=== PATIENT | male | born 2000 | race Caucasian/White ===

== ENCOUNTER 2021-04-30 10:35 | Emergency (ER) | payer BC ==
[2021-04-30] MEDS ORDERED: Sodium Chloride 0.9% 1,000 ML IV ONE (11:15)
--- NOTE | 2021-04-30 11:20 | EDM.PDOC ---
ED HPI GENERAL MEDICAL PROBLEM - General Source of Information: Reports: Patient History Limitations: Reports: No Limitations - History of Present Illness Onset: Today, Sudden Duration: Minutes: Location: Reports: Generalized Severity: Severe Worsens with: Reports: None <Thierno Gutierrez - Last Filed: 04/30/21 12:01> <Antonio Dotson - Last Filed: 04/30/21 12:46> - General Chief Complaint: Neurological Problem Stated Complaint: [id number] IN BY AMBULANCE Time Seen by Provider: 04/30/21 11:06 - History of Present Illness INITIAL COMMENTS - FREE TEXT/NARRATIVE: 21 y/o M witnessed seizure lasting about 5 min this morning. No hx of seizures. Pt was staying at a friends house last night and this morning while pt was sleeping he began seizing. I spoke with the pts via cell who stated that the pt came into his room this morning while the friend was playing a video game. The pt sat down on the bed, fell over and possibly struck his head on the friends desk and fell to the carpeted floor and began seizing. No change in color per friend. Friend describes full body shaking. After about five min pt stopped seizing, awoke, and was very confused. Pt admits to drinking several alcoholic beverages last night and taking one THC edible. Pt has used edibles years ago with no problems. No family hx of seizures, cancers, heart conditions. Denies fever, cough, vision prob, cp, db, abd pn, incontinence of urine, extremity pain, other drugs, recent trauma. (Thierno Gutierrez) - Related Data Allergies Allergy/AdvReac Type Severity Reaction Status Date / Time No Known Allergies Allergy Verified 04/30/21 10:53 Home Meds: Home Meds . [No Known Home Meds] 04/30/21 [History] Past Medical History HEENT History: Reports: None Cardiovascular History: Reports: None Respiratory History: Reports: None Gastrointestinal History: Reports: None Genitourinary History: Reports: None Musculoskeletal History: Reports: None Neurological History: Reports: None Psychiatric History: Reports: None Endocrine/Metabolic History: Reports: None Hematologic History: Reports: None Immunologic History: Reports: None Oncologic (Cancer) History: Reports: None Dermatologic History: Reports: None - Infectious Disease History Infectious Disease History: Reports: None - Past Surgical History Head Surgeries/Procedures: Reports: None <Thierno Gutierrez C - Last Filed: 04/30/21 12:01> Social & Family History - Tobacco Use Tobacco Use Status *Q: Never Tobacco User - Recreational Drug Use Recreational Drug Use: No <Thierno Gutierrez Nimesh - Last Filed: 04/30/21 12:01> ED ROS GENERAL - Review of Systems Review Of Systems: Comprehensive ROS is negative, except as noted in HPI. <Thierno Gutierrez Nimesh - Last Filed: 04/30/21 12:01> - Physical Exam Exam: See Below Exam Limited By: No Limitations General Appearance: Alert, No Apparent Distress Eye Exam: Bilateral Eye: PERRL Ears: Normal External Exam, Normal Canal, Hearing Grossly Normal, Normal TMs Nose: Normal Inspection, Normal Mucosa, No Blood Throat/Mouth: Normal Inspection, Normal Lips, Normal Teeth, Normal Gums, Normal Oropharynx, Normal Voice, No Airway Compromise Head Exam: Atraumatic, Normocephalic Neck: Supple, Non-Tender Respiratory/Chest: No Respiratory Distress, Lungs Clear, Normal Breath Sounds, No Accessory Muscle Use, Chest Non-Tender Cardiovascular: Normal Peripheral Pulses, Regular Rate, Rhythm, No Edema, No Gallop, No JVD, No Murmur, No Rub GI/Abdominal: Soft, Non-Tender (Male) Exam: Deferred Rectal (Males) Exam: Deferred Neuro Exam (Abbreviated): Alert, Oriented, CN II-XII Intact, Normal Cognition, Normal Gait, Normal Reflexes, No Motor/Sensory Deficits Back Exam: Normal Inspection, Full Range of Motion Extremities: Normal Inspection, Normal Range of Motion, Non-Tender, No Pedal Edema, Normal Capillary Refill Psychiatric: Normal Affect, Normal Mood Skin Exam: Warm, Dry, Intact <Thierno Gutierrez C - Last Filed: 04/30/21 12:01> #1 Interpretation EKG Date: 04/30/21 Time: 11:05 Rhythm: NSR [place]: Normal P-Wave: Present QRS: Normal ST-T: Elevated (Early repolorization pattern) QT: Normal Comparison: NA - No Prior EKG <Antonio Dotson - Last Filed: 04/30/21 12:46> Course <Thierno Gutierrez C - Last Filed: 04/30/21 12:01> <Antonio Dotson - Last Filed: 04/30/21 12:46> - Vital Signs Last Recorded V/S: Last Vital Signs Temp 98.2 F 04/30/21 10:42 Pulse 63 04/30/21 12:16 Resp 16 04/30/21 12:16 BP 127/79 04/30/21 12:16 Pulse Ox 99 04/30/21 11:16 - Orders/Labs/Meds Orders: Active Orders 24 hr Category Date Time Status REFLEX LACTIC ACID YES OR NO [CHEM] Routine Lab 04/30/21 11:52 Received Labs: Laboratory Tests 04/30/21 04/30/21 04/30/21 Range/Units 11:16 11:16 11:16 WBC 6.6 (5.0-10.0) 10^3/uL RBC 5.55 (4.6-6.2) 10^6/uL Hgb 15.7 (14.0-18.0) g/dL Hct 45.8 (40.0-54.0) % MCV 82.5 (80-100) fL MCH 28.3 (27.0-34.0) pg MCHC 34.3 (33.0-35.0) g/dL Plt Count 205 (150-450) 10^3/uL Neut % (Auto) 62.0 (42.2-75.2) % Lymph % (Auto) 27.7 (20.5-50.1) % Foard % (Auto) 7.9 (2-8) % Eos % (Auto) 2.1 (1.0-3.0) % Baso % (Auto) 0.3 (0.0-1.0) % Sodium 139 (136-145) mmol/L Potassium 3.7 (3.5-5.1) mmol/L Chloride 101 (98-107) mmol/L Carbon Dioxide 27 (21-32) mmol/L Anion Gap 14.7 H (7-13) mEq/L BUN 14 (7-18) mg/dL Creatinine 1.09 (0.70-1.30) mg/dL Est Cr Clr Drug Dosing 115.14 mL/min Estimated GFR (MDRD) > 60 BUN/Creatinine Ratio 12.8 (No establ ref range) Glucose 96 (70-99) mg/dL Lactic Acid 2.2 H* (0.4-2.0) mmol/L Calcium 8.5 (8.5-10.1) mg/dL Magnesium 2.2 (1.8-2.4) mg/dL Total Bilirubin 0.5 (0.2-1.0) mg/dL AST 12 L (15-37) U/L ALT 34 (16-63) U/L Alkaline Phosphatase 86 (46-116) U/L Troponin I High Sens < 4 (<=76) pg/mL Total Protein 7.5 (6.4-8.2) g/dL Albumin 4.0 (3.4-5.0) g/dL Globulin 3.5 Albumin/Globulin Ratio 1.1 Urine Color (YELLOW) Urine Appearance (CLEAR) Urine pH (5.0-9.0) Ur Specific [place] (1.005-1.030) Urine Protein (NEGATIVE) Urine Glucose (UA) (NEGATIVE) Urine Ketones (NEGATIVE) Urine Occult Blood (NEGATIVE) Urine Nitrite (NEGATIVE) Urine Bilirubin (NEGATIVE) Urine Urobilinogen (0.2-1.0) mg/dL Ur Leukocyte Esterase (NEGATIVE) Urine RBC (0-5) /HPF Urine WBC (0-5/HPF) /HPF Ur Epithelial Cells (NOT SEEN) /HPF Amorphous Sediment (NOT SEEN) /HPF Urine Bacteria (0-FEW/HPF) /HPF Urine Other Urine Opiates Screen (NEGATIVE) Ur Oxycodone Screen (NEGATIVE) Urine Methadone Screen (NEGATIVE) Ur Barbiturates Screen (NEGATIVE) U Tricyclic Antidepress (NEGATIVE) Ur Phencyclidine Scrn (NEGATIVE) Ur Amphetamine Screen (NEGATIVE) U Methamphetamines Scrn (NEGATIVE) Urine MDMA Screen (NEGATIVE) U Benzodiazepines Scrn (NEGATIVE) Urine Cocaine Screen (NEGATIVE) U Marijuana (THC) Screen (NEGATIVE) 04/30/21 04/30/21 Range/Units 12:03 12:03 WBC (5.0-10.0) 10^3/uL RBC (4.6-6.2) 10^6/uL Hgb (14.0-18.0) g/dL Hct (40.0-54.0) % MCV (80-100) fL MCH (27.0-34.0) pg MCHC (33.0-35.0) g/dL Plt Count (150-450) 10^3/uL Neut % (Auto) (42.2-75.2) % Lymph % (Auto) (20.5-50.1) % [place]oard % (Auto) (2-8) % Eos % (Auto) (1.0-3.0) % Baso % (Auto) (0.0-1.0) % Sodium (136-145) mmol/L Potassium (3.5-5.1) mmol/L Chloride (98-107) mmol/L Carbon Dioxide (21-32) mmol/L Anion Gap (7-13) mEq/L BUN (7-18) mg/dL Creatinine (0.70-1.30) mg/dL Est Cr Clr Drug Dosing mL/min Estimated GFR (MDRD) BUN/Creatinine Ratio (No establ ref range) Glucose (70-99) mg/dL Lactic Acid (0.4-2.0) mmol/L Calcium (8.5-10.1) mg/dL Magnesium (1.8-2.4) mg/dL Total Bilirubin (0.2-1.0) mg/dL AST (15-37) U/L ALT (16-63) U/L Alkaline Phosphatase (46-116) U/L Troponin I High Sens (<=76) pg/mL Total Protein (6.4-8.2) g/dL Albumin (3.4-5.0) g/dL Globulin Albumin/Globulin Ratio Urine Color Yellow (YELLOW) Urine Appearance Clear (CLEAR) Urine pH 6.0 (5.0-9.0) Ur Specific [place] >= 1.030 (1.005-1.030) Urine Protein 30 H (NEGATIVE) Urine Glucose (UA) Negative (NEGATIVE) Urine Ketones Negative (NEGATIVE) Urine Occult Blood Trace-intact H (NEGATIVE) Urine Nitrite Negative (NEGATIVE) Urine Bilirubin Negative (NEGATIVE) Urine Urobilinogen 0.2 (0.2-1.0) mg/dL Ur Leukocyte Esterase Negative (NEGATIVE) Urine RBC 0-5 (0-5) /HPF Urine WBC 0-5 (0-5/HPF) /HPF Ur Epithelial Cells Rare (NOT SEEN) /HPF Amorphous Sediment Few (NOT SEEN) /HPF Urine Bacteria Not seen (0-FEW/HPF) /HPF Urine Other See note Urine Opiates Screen Negative (NEGATIVE) Ur Oxycodone Screen Negative (NEGATIVE) Urine Methadone Screen Negative (NEGATIVE) Ur Barbiturates Screen Negative (NEGATIVE) U Tricyclic Antidepress Negative (NEGATIVE) Ur Phencyclidine Scrn Negative (NEGATIVE) Ur Amphetamine Screen Negative (NEGATIVE) U Methamphetamines Scrn Negative (NEGATIVE) Urine MDMA Screen Negative (NEGATIVE) U Benzodiazepines Scrn Negative (NEGATIVE) Urine Cocaine Screen Negative (NEGATIVE) U Marijuana (THC) Screen Positive H (NEGATIVE) Meds: Medications Discontinued Medications Generic Name Dose Route Start Last Admin Trade Name Freq PRN Reason Stop Dose Admin Sodium Chloride 1,000 mls @ 999 mls/hr 04/30/21 11:15 04/30/21 11:35 Normal Saline IV 04/30/21 12:15 999 mls/hr .BOLUS ONE Administration - Re-Assessments/Exams Free Text/Narrative Re-Assessment/Exam: 04/30/21 12:36 Discussed physical exam findings, ekg, radiological findings and lab results with pt. Informed pt that if he has any change in condition or new symptoms to contact his primary care provider or return to the ER> Instructed pt to avoid drugs and alcohol and to eat healthy and drink plenty of fluids. (Thierno Gutierrez) 04/30/21 12:45 The patient was examined/reexamined by myself. I agree with the examination, orders, and course of action. (Antonio Dotson) Departure - Departure Time of Disposition: 12:40 Condition: Good - Discharge Information *PRESCRIPTION DRUG MONITORING PROGRAM REVIEWED*: Not Applicable *COPY OF PRESCRIPTION DRUG MONITORING REPORT IN PATIENT CHRISTIAN: Not Applicable <Thierno Gutierrez - Last Filed: 04/30/21 12:01> <Antonio Dotson - Last Filed: 04/30/21 12:46> - Departure Disposition: Home, Self-Care 01 Clinical Impression: Seizure - Discharge Information Instructions: Seizure, Adult, [id number] Forms: ED Department Discharge Additional Instructions: Drink plenty of fluids and eat healthy. If you have another seizure or any change in your current condition contact your primary care facility or return to the ER. In the event of another seizure you may have to consult with a neurologist. Sepsis Event Note (ED) - Focused Exam Vital Signs: Vital Signs Temp Pulse Resp BP Pulse Ox 04/30/21 12:16 63 16 127/79 04/30/21 11:16 62 20 141/88 H 99 04/30/21 10:53 93 16 140/78 100 04/30/21 10:42 98.2 F 89 16 162/90 H 99 - My Orders Last 24 Hours: My Active Orders 04/30/21 11:52 REFLEX LACTIC ACID YES OR NO [CHEM] Routine - Assessment/Plan Last 24 Hours: My Active Orders 04/30/21 11:52 REFLEX LACTIC ACID YES OR NO [CHEM] Routine
--- NOTE | 2021-04-30 11:33 | CT ---
PROCEDURE INFORMATION: Exam: CT Head Without Contrast Exam date and time: 04/30/2021 11:25 AM Age: 21 years old Clinical indication: Other: New onset seizure TECHNIQUE: Imaging protocol: Computed tomography of the head without contrast. Radiation optimization: All CT scans at this facility use at least one of these dose optimization techniques: automated exposure control; mA and/or kV adjustment per patient size (includes targeted exams where dose is matched to clinical indication); or iterative reconstruction. COMPARISON: No relevant prior studies available. FINDINGS: Brain: Normal. No hemorrhage. Unremarkable white matter. No mass effect. Cerebral ventricles: No ventriculomegaly. Paranasal sinuses: Visualized sinuses are unremarkable. No fluid levels. Mastoid air cells: Visualized mastoid air cells are well aerated. Bones/joints: Unremarkable. No acute fracture. Soft tissues: Unremarkable. IMPRESSION: No acute intracranial abnormality.
[2021-04-30 11:47] LABS: ANION GAP 14.7 mEq/L (7-13); CHLORIDE,CL 101 mmol/L (98-107); SODIUM,NA 139 mmol/L (136-145)
[2021-04-30 12:26] LABS: AMPHETAMINES,URINE NEGATIVE (NEGATIVE); BARBITURATES,URINE NEGATIVE (NEGATIVE); BENZODIAZEPINE,URINE NEGATIVE (NEGATIVE); MDMA (ECSTASY), URINE NEGATIVE (NEGATIVE); METHADONE,URINE NEGATIVE (NEGATIVE); METHAMPHETAMINES,URINE NEGATIVE (NEGATIVE); OPIATES,URINE NEGATIVE (NEGATIVE); OXYCODONE,URINE NEGATIVE (NEGATIVE); PHENCYCLIDINE,URINE NEGATIVE (NEGATIVE); TCA,URINE NEGATIVE (NEGATIVE)
== END 2021-04-30 12:00 | disposition home or self-care (01) ==
LOC: DL.ED 10:35
DX: R56.9 Unspecified convulsions (principal)
CPT/HCPCS: 36415; 70450; 80053; 80305; 81001; 83605; 83735; 84484; 85025; 93005; 99285; J7030